=== PATIENT | female | born 1975 | race Caucasian/White ===

== ENCOUNTER 2018-10-25 10:13 | Outpatient (CLI) | payer OTHER ==
--- NOTE | 2018-10-29 17:09 | MMO ---
Bilateral MAMMO Bilat Screen [facility]. CLINICAL HISTORY: Patient is 43 years old and is seen for screening. The patient has the following family history of breast cancer: maternal aunt. The patient has no personal history of cancer. The patient has a history of bilateral Breast reduction more than 10 years ago. VIEWS: The views performed were: bilateral craniocaudal with tomosynthesis and bilateral mediolateral oblique with tomosynthesis. FILMS COMPARED: The present examination has been compared to prior imaging studies performed at MAMMOGRAM FINDINGS: The breasts are almost entirely fat. There are no suspicious masses, suspicious calcifications, or new areas of architectural distortion. IMPRESSION: THERE IS NO MAMMOGRAPHIC EVIDENCE OF MALIGNANCY. A ROUTINE FOLLOW-UP MAMMOGRAM IN 1 YEAR IS RECOMMENDED. THE RESULTS OF THIS EXAM WERE SENT TO THE PATIENT. ACR BI-RADS Category 1 - Negative MAMMOGRAPHY NOTE: 1. A negative mammogram report should not delay a biopsy if a dominant of clinically suspicious mass is present. 2. Approximately 10% to 15% of breast cancers are not detected by mammography. 3. Adenosis and dense breasts may obscure an underlying neoplasm.
== END 2018-10-25 10:14 | disposition home or self-care (01) ==
LOC: BICMAMMO 10:13
PROVIDERS: ATTEND Family Medicine
DX: Z12.31 Encounter for screening mammogram for malignant neoplasm of breast (principal); Z80.3 Family history of malignant neoplasm of breast; Z98.890 Other specified postprocedural states
CPT/HCPCS: 77063; 77067

== ENCOUNTER 2022-12-26 09:55 | Outpatient (CLI) | payer BC | END 2022-12-26 09:56 | disposition home or self-care (01) | LOC: BICMAMMO 09:55 | PROVIDERS: ATTEND Family Medicine | DX: Z12.31 Encounter for screening mammogram for malignant neoplasm of breast (principal); Z80.3 Family history of malignant neoplasm of breast; Z98.82 Breast implant status | CPT/HCPCS: 77063; 77067 ==

== ENCOUNTER 2023-03-04 09:26 | Outpatient (CLI) | payer BC | END 2023-03-04 09:27 | disposition home or self-care (01) | LOC: BICRAD 09:26 | PROVIDERS: ATTEND Family Medicine | DX: M47.816 Spondylosis without myelopathy or radiculopathy, lumbar region (principal); M46.1 Sacroiliitis, not elsewhere classified; G89.4 Chronic pain syndrome; M43.16 Spondylolisthesis, lumbar region; M47.817 Spondylosis without myelopathy or radiculopathy, lumbosacral region | CPT/HCPCS: 72100 ==

== ENCOUNTER 2023-05-18 10:02 | Outpatient (CLI) | payer BC | END 2023-05-18 10:03 | disposition home or self-care (01) | LOC: MRI 10:02 | PROVIDERS: ATTEND Family Medicine | DX: G57.32 Lesion of lateral popliteal nerve, left lower limb (principal); M47.816 Spondylosis without myelopathy or radiculopathy, lumbar region; M47.817 Spondylosis without myelopathy or radiculopathy, lumbosacral region | CPT/HCPCS: 72148 ==

== ENCOUNTER 2024-04-07 09:55 | Outpatient (CLI) | payer BC ==
[2024-04-07 11:01] LABS: #Basophils 0.06 10x3/uL (0.0-0.2); %Basophils 0.6 % (0.0-1.0); %Eosinophils 2.9 % (0.0-10.0); %Lymphocytes 25.8 % (21.0-51.0); %Monocytes 5.2 % (0.0-10.0); %Neutrophils 64.9 % (42.0-75.0); Hematocrit 36.5 % (36.0-47.0); Hemoglobin 12.6 g/dL (12.0-16.0); Mean Corpuscular HGB CONC 34.5 g/dL (32.0-36.0); Mean Corpuscular Hemoglobin 29.5 pg (27.0-31.0); Mean Corpuscular Volume 85.5 fL (78.0-98.0); Mean Platelet Volume 9.1 fL (7.4-10.4); Platelet Count 353 10x3/uL (130-400); RBC Distribution Width 12.7 % (11.5-14.5); Red Blood Cell (RBC) Count 4.27 mill/uL (4.20-5.40)
[2024-04-07 11:35] LABS: Anion Gap 16 mmol/L (10-20); BUN (Urea Nitrogen) 9 mg/dL (7.0-18.7); Calc. Creatinine Clearance 0 mL/min (70-130); Carbon Dioxide 23 mmol/L (22-29); Chloride 101 mmol/L (98-107); Estimated GFR 80; Glucose 128 mg/dL (70-105); Potassium 3.4 mmol/L (3.5-5.1); Sodium 137 mmol/L (136-145)
== END 2024-04-07 09:56 | disposition home or self-care (01) ==
LOC: LABBT 09:55
PROVIDERS: ATTEND Neurological Surgery
DX: Z01.818 Encounter for other preprocedural examination (principal); M43.16 Spondylolisthesis, lumbar region
CPT/HCPCS: 80048; 85025; 93005; 93010

== ENCOUNTER 2024-04-18 06:00 | Day surgery (SDC) | payer BC ==
[2024-04-07 10:30] VITALS: BMI 34.4
[2024-04-18] MEDS ORDERED: CEFAZOLIN 2 GM VIAL ONE (06:16)
[2024-04-18] MEDS ORDERED: Vancomycin 1 GM VIAL ONE (06:22)
[2024-04-18] MEDS ORDERED: fentaNYL PF 100 MCG/2 ML SYRINGE ONE ×2 (06:54→08:05)
[2024-04-18] MEDS ORDERED: Lidocaine 1% PF 5 ML VIAL ONE (06:54)
[2024-04-18] MEDS ORDERED: Rocuronium Bromide 10 MG/ML (10ML VIAL) ONE (06:54)
[2024-04-18] MEDS ORDERED: PROPOFOL 20 ML ONE (06:54)
[2024-04-18] MEDS ORDERED: Midazolam HCl 2 mg/2 ml Vial ONE (07:01)
[2024-04-18] MEDS ORDERED: Dexmedetomidine 200 MCG/2 ML VIAL ONE (07:17)
[2024-04-18] MEDS ORDERED: Sterile Water 10 ML ONE (07:23)
[2024-04-18] MEDS ORDERED: Ketorolac Tromethamine 30 MG (1 mL) VIAL ONE (07:52)
[2024-04-18] MEDS ORDERED: Dexamethasone 20 MG/5 ML VIAL ONE (07:52)
[2024-04-18] MEDS ORDERED: Ondansetron PF 4 MG/2 ML Vial ONE (07:52)
[2024-04-18] MEDS ORDERED: PHENYLEPHRINE-NS 100 MCG/ML 10 ML SYRINGE ONE (08:15)
[2024-04-18] MEDS ORDERED: Lidocaine 2% PF 5 ML VIAL ONE (08:17)
[2024-04-18] MEDS ORDERED: SUGAMMADEX SODIUM 200 MG/2 ML VIAL ONE (08:28)
[2024-04-18] MEDS ORDERED: fentaNYL 50 mcg/mL 1 mL Vial ONE ×2 (09:04→11:05)
[2024-04-18] MEDS ORDERED: HYDROmorphone 0.5 MG/0.5 ML SYRINGE ONE ×2 (09:24→09:49)
[2024-04-18] MEDS ORDERED: Cyclobenzaprine 10 MG TAB ONE (09:39)
[2024-04-18] MEDS ORDERED: HYDROcodone/Acetaminophen 5/325 mg Tablet ONE (12:00)
== END 2024-04-18 12:40 | disposition home or self-care (01) ==
LOC: SDC 06:00
PROVIDERS: ATTEND Neurological Surgery
PROC: 0SH Lower Joints, Insertion (ICD-10-PCS; principal; 2024-04-18)
PROC: 00NY0ZZ Release Lumbar Spinal Cord, Open Approach (ICD-10-PCS; principal; 2024-04-18)
DX: M43.16 Spondylolisthesis, lumbar region (principal); Z90.710 Acquired absence of both cervix and uterus
CPT/HCPCS: C1713; C1889; J1100; J1171; J1885; J2250; J2405; J2704; J3010; J3370

== ENCOUNTER 2024-05-06 08:22 | Outpatient (CLI) | payer BC | END 2024-05-06 08:23 | disposition home or self-care (01) | LOC: BICRAD 08:22 | PROVIDERS: ATTEND Neurological Surgery | DX: M43.16 Spondylolisthesis, lumbar region (principal); Z98.890 Other specified postprocedural states | CPT/HCPCS: 72100 ==

== ENCOUNTER 2024-06-16 14:44 | Outpatient (CLI) | payer BC | END 2024-06-16 14:45 | disposition home or self-care (01) | LOC: BICMAMMO 14:44 | PROVIDERS: ATTEND Family Medicine | DX: Z12.31 Encounter for screening mammogram for malignant neoplasm of breast (principal); Z78.0 Asymptomatic menopausal state; Z80.3 Family history of malignant neoplasm of breast; Z98.890 Other specified postprocedural states | CPT/HCPCS: 77063; 77067; 77080 ==